=== PATIENT | female | born 1970 | race Caucasian/White ===

== ENCOUNTER 2017-05-27 09:27 | Emergency (ER) | payer BC ==
[2017-05-27] MEDS ORDERED: DIPH,PERTUS(ACELL)TETVAC-LF 0.5 ML VIAL IM ONE (09:53)
--- NOTE | 2017-05-27 09:58 | ED ---
Wound/Laceration HPI - General Chief Complaint: Wound/Laceration Stated Complaint: laceration Time Seen by Provider: 05/27/17 09:46 Source: patient, RN notes reviewed Mode of arrival: ambulatory Limitations: no limitations - History of Present Illness Initial Comments: Patient is a 47-year-old female presents to the emergency room for finger laceration. 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 Patient states she went to urgent care where they place stitches in her finger. Patient states her finger still continued to bleed so they took the stitches out and sent her here. Patient denies taking blood thinners. Patient states last tetanus vaccine was in 2009. Patient denies any current pain since they numbed her finger at urgent care. Patient denies any other injuries during incident. - Related Data Home Medications Medication Instructions Recorded Confirmed Fexofenadine HCl [Sara Allergy] 180 mg PO DAILY PRN 05/27/17 05/27/17 diphenhydrAMINE HCL [Benadryl] 50 mg PO HS PRN 05/27/17 05/27/17 Allergies Allergy/AdvReac Type Severity Reaction Status Date / Time cortisone Allergy Swelling Verified 05/27/17 09:53 Penicillins Allergy Unknown Verified 05/27/17 09:53 Childhood shellfish derived [Shrimp] Allergy Unknown Verified 05/27/17 09:53 Review of Systems ROS Statement: Those systems with pertinent positive or pertinent negative responses have been documented in the HPI. ROS Other: All systems not noted in ROS Statement are negative. Past Medical History Additional Past Medical History / Comment(s): ectopic pregnance, History of Any Multi-Drug Resistant Organisms: None Reported Past Surgical History: Orthopedic Surgery Additional Past Surgical History / Comment(s): right knee Past Psychological History: No Psychological Hx Reported Smoking Status: Current every day smoker Past Alcohol Use History: None Reported Past Drug Use History: None Reported General Exam - General Exam Comments Initial Comments: Sitting in exam room, no acute distress. Limitations: no limitations General appearance: alert, in no apparent distress Head exam: Present: atraumatic, normocephalic, normal inspection Eye exam: Present: normal appearance ENT exam: Present: normal exam Neck exam: Present: normal inspection Respiratory exam: Absent: respiratory distress Right Hand Wrist exam: Present: full ROM, laceration (1cm laceration over tip of the distal phalanx of the third finger. No active bleeding.) Vascular: Present: normal capillary refill (Capillary refill less than 2 seconds ), radial pulse (2+), ulnar pulse (2+) Back exam: Present: normal inspection Neurological exam: Present: alert, oriented X3, CN II-XII intact, normal gait Psychiatric exam: Present: normal affect, normal mood Skin exam: Present: warm, dry. Absent: rash Course Vital Signs 05/27/17 05/27/17 09:29 10:52 Temperature 97.1 F L 97 F L Pulse Rate 75 65 Respiratory 17 18 Rate Blood Pressure 120/80 132/62 O2 Sat by Pulse 97 96 Oximetry Procedures - Laceration Laceration #1 Consent Obtained: verbal consent Indication: laceration Site: other (right third finger) Size (cm): 1 Description: linear Depth: simple, single layer Type of Sutures: nylon Size of Sutures: 6-0 Number of Sutures: 2 Technique: simple, interrupted Patient Tolerated Procedure: well, no complications Medical Decision Making - Medical Decision Making Patient is a 47-year-old female presents to the emergency room for evaluation of left third finger laceration. Patient was sent here from the [facility] due to her finger continuing to bleed. No active bleeding on examination. Patient's finger was already anesthetized before arrival from [facility]. 2, 6. 0 nylon sutures were placed. Patient updated on her tetanus vaccine. Return parameters discussed. Disposition Clinical Impression: Finger laceration Disposition: HOME SELF-CARE Condition: Good Instructions: Care For Your Stitches (ED), Finger Laceration (ED) Additional Instructions: Do not soak suture area in water. Clean suture area with a damp cloth. Please return in 7-10 days for suture removal. Tylenol or Motrin as needed for pain. If any new symptom arises or symptoms worsen, return to ER as soon as possible. Referrals: Yung Servin MD [Primary Care Provider] - 1-2 days Time of Disposition: 10:44
[2017-05-27 10:53] VITALS: BP 132/62; PULSE 65; RESP 18; TEMP 97
== END 2017-05-27 10:53 | disposition home or self-care (01) ==
LOC: EC 09:27
DX: S61.212D Laceration without foreign body of right middle finger without damage to nail, subsequent encounter (principal); F17.200 Nicotine dependence, unspecified, uncomplicated; Z88.0 Allergy status to penicillin; Z88.8 Allergy status to other drugs, medicaments and biological substances; Z91.013 Allergy to seafood; Z23 Encounter for immunization; W26.0XXD Contact with knife, subsequent encounter; Y92.833 Campsite as the place of occurrence of the external cause; Y93.G1 Activity, food preparation and clean up
CPT/HCPCS: 12001; 90471; 90715; 99282

== ENCOUNTER 2019-05-01 23:32 | Emergency (ER) | payer BC ==
[2019-05-02 00:19] VITALS: RESP 18; TEMP 98.1
[2019-05-02] MEDS ORDERED: SODIUM CHLORIDE 0.9% 500 ML 500 ML IV STA (00:47)
[2019-05-02 01:19] LABS: Basophils % (A) 0 %; Eosinophils # (A) 0.5 k/uL (0-0.7); Eosinophils % (A) 4 %; HCT 44.3 % (34.0-46.0); HGB 14.5 gm/dL (11.4-16.0); Lymphocytes # (A) 2.9 k/uL (1.0-4.8); Lymphocytes % (A) 24 %; MCH 29.6 pg (25.0-35.0); MCHC 32.6 g/dL (31.0-37.0); MCV 90.7 fL (80.0-100.0); Mean Platelet Volume 7.4; Monocytes # (A) 0.8 k/uL (0-1.0); Monocytes % (A) 7 %; Neutrophils # (A) 7.6 k/uL (1.3-7.7); Neutrophils % (A) 63 %; Platelet Count 310 k/uL (150-450); RBC 4.89 m/uL (3.80-5.40); RDW 14.1 % (11.5-15.5)
[2019-05-02 01:29] LABS: ALT 15 U/L (9-52); AST 13 U/L (14-36); African American GFR (CKD) >90 (>60 ml/min/1.73 sqM); Albumin 4.1 g/dL (3.5-5.0); Alkaline Phosphatase 52 U/L (38-126); Anion Gap 8 mmol/L; Blood Urea Nitrogen 12 mg/dL (7-17); Calcium 9.9 mg/dL (8.4-10.2); Carbon Dioxide 26 mmol/L (22-30); Chloride 105 mmol/L (98-107); Glucose 103 mg/dL (74-99); Potassium 3.9 mmol/L (3.5-5.1); Sodium 139 mmol/L (137-145); Total Bilirubin 0.5 mg/dL (0.2-1.3); Total Protein 6.7 g/dL (6.3-8.2)
--- NOTE | 2019-05-02 02:05 | ED ---
General Adult HPI - General Chief complaint: ENT Stated complaint: Lump in Throat Time Seen by Provider: 05/02/19 00:11 Source: patient, RN notes reviewed, old records reviewed Mode of arrival: ambulatory Limitations: physical limitation - History of Present Illness Initial comments: 49-year-old female patient with no pertinent past medical history presents to ED with sensation of foreign body in throat. Patient states that this began today approximately 8 PM. Patient states that she is not having difficulty breathing. However she feels as if she has a lump in her throat. Patient denies a sensation of food trapped in throat after eating. Patient denies any other complaints at this time. Denies any chest pain shortness breath abdominal pain nausea vomiting or diarrhea. Patient states that there is no chance that she could be . Systemic: Pt denies fatigue, fever/chills, rash. Pt denies weakness, night sweats, weight loss. Neuro: Pt denies headache, visual disturbances, syncope or pre-syncope. HEENT: Pt denies ocular discharge or irritation, otalgia, rhinorrhea, pharyngitis or notable lymphadenopathy. Cardiopulmonary: Pt denies chest pain, SOB, heart palpitations, dyspnea on exertion. Abdominal/GI: Pt denies abdominal pain, n/v/d. : Pt denies dysuria, burning w/ urination, frequency/urgency. Denies new onset urinary or bowel incontinence. MSK: Pt denies myalgia, loss of strength or function in extremities. Neuro: Pt denies new onset weakness, paresthesias. - Related Data Home Medications Medication Instructions Recorded Confirmed Fexofenadine HCl [Sara Allergy] 180 mg PO DAILY PRN 05/27/17 05/02/19 diphenhydrAMINE HCL [Benadryl] 50 mg PO HS PRN 05/27/17 05/02/19 Allergies Allergy/AdvReac Type Severity Reaction Status Date / Time cortisone Allergy Swelling Verified 05/02/19 00:05 Penicillins Allergy Unknown Verified 05/02/19 00:05 Childhood shellfish derived [Shrimp] Allergy Unknown Verified 05/02/19 00:05 Review of Systems ROS Statement: Those systems with pertinent positive or pertinent negative responses have been documented in the HPI. ROS Other: All systems not noted in ROS Statement are negative. Past Medical History Additional Past Medical History / Comment(s): ectopic History of Any Multi-Drug Resistant Organisms: None Reported Past Surgical History: Orthopedic Surgery Additional Past Surgical History / Comment(s): right knee, ECTOPIC Past Psychological History: No Psychological Hx Reported Smoking Status: Former smoker Past Alcohol Use History: None Reported Past Drug Use History: None Reported General Exam - General Exam Comments Initial Comments: Constitutional: NAD, AOX3, Pt has pleasant affect. HEENT: NC/AT, trachea midline, neck supple, no lymphadenopathy. Posterior pharynx non erythematous, without exudates. External ears appear normal, without discharge. Mucous membranes moist. Eyes PERRLA, EOM intact. There is no scleral icterus. No pallor noted. Thyroid appears mildly enlarged on left lobe. Cardiopulmonary: RRR, no murmurs, rubs or gallops, no JVD noted. Lungs CTAB in anterior and posterior egan. No peripheral edema. Abdominal exam: Abdomen soft and non-distended. Abdomen non-tender to palpation in all 4 quadrants. Bowel sounds active in LLQ. No hepatosplenomegaly. No ecchymosis Neuro: CN II-XII grossly intact. No nuchal rigidity. No raccon eyes, no resendiz sign, no hemotympanum. No cervical spinal tenderness. MSK: No posterior calf tenderness bilaterally, homans sign negative bilaterally. Posterior tibialis and radial pulse +2 bilaterally. Sensation intact in upper and lower extremities. Full active ROM in upper and lower extremities, 5/5 stregnth. Limitations: physical limitation Course Vital Signs 05/02/19 00:00 Temperature 98.1 F Pulse Rate 69 Respiratory 18 Rate Blood Pressure 148/86 O2 Sat by Pulse 98 Oximetry Medical Decision Making - Medical Decision Making 49-year-old female patient with no pertinent past medical history presents to ED with sensation of foreign body in throat. Patient states that this began today approximately 8 PM. Patient states that she is not having difficulty breathing. However she feels as if she has a lump in her throat. Patient denies a sensation of food trapped in throat after eating. Patient denies any other complaints at this time. Denies any chest pain shortness breath abdominal pain nausea vomiting or diarrhea. Patient states that there is no chance that she could be . Patient vital signs stable, afebrile. Physical exam displayed mildly enlarged L thyroid lobe. Laboratory investigations revealed mild lekocytosis 12.0. CMP nonimmpressive. CT soft tissue neck with contrast displayed 2 cm nodule in left thyroid lobe. Patient will be discharged with surgery follow-up. Patient also be given a prescription for outpatient ultrasound of the thyroid. Patient return here if condition worsens. Case discussed with Dr. Ann. - Lab Data Result diagrams: 05/02/19 01:07 05/02/19 01:07 Lab Results 05/02/19 05/02/19 05/02/19 Range/Units 01:07 01:07 01:07 WBC 12.0 H (3.8-10.6) k/uL RBC 4.89 (3.80-5.40) m/uL Hgb 14.5 (11.4-16.0) gm/dL Hct 44.3 (34.0-46.0) % MCV 90.7 (80.0-100.0) fL MCH 29.6 (25.0-35.0) pg MCHC 32.6 (31.0-37.0) g/dL RDW 14.1 (11.5-15.5) % Plt Count 310 (150-450) k/uL Neutrophils % 63 % Lymphocytes % 24 % Monocytes % 7 % Eosinophils % 4 % Basophils % 0 % Neutrophils # 7.6 (1.3-7.7) k/uL Lymphocytes # 2.9 (1.0-4.8) k/uL Monocytes # 0.8 (0-1.0) k/uL Eosinophils # 0.5 (0-0.7) k/uL Basophils # 0.0 (0-0.2) k/uL Sodium 139 (137-145) mmol/L Potassium 3.9 (3.5-5.1) mmol/L Chloride 105 (98-107) mmol/L Carbon Dioxide 26 (22-30) mmol/L Anion Gap 8 mmol/L BUN 12 (7-17) mg/dL Creatinine 0.63 (0.52-1.04) mg/dL Est GFR (CKD-EPI)AfAm >90 (>60 ml/min/1.73 sqM) Est GFR (CKD-EPI)NonAf >90 (>60 ml/min/1.73 sqM) Glucose 103 H (74-99) mg/dL Plasma Lactic Acid Marco A 1.0 (0.7-2.0) mmol/L Calcium 9.9 (8.4-10.2) mg/dL Total Bilirubin 0.5 (0.2-1.3) mg/dL AST 13 L (14-36) U/L ALT 15 (9-52) U/L Alkaline Phosphatase 52 (38-126) U/L Total Protein 6.7 (6.3-8.2) g/dL Albumin 4.1 (3.5-5.0) g/dL Disposition Clinical Impression: Thyroid nodule Disposition: HOME SELF-CARE Condition: Stable Instructions (If sedation given, give patient instructions): Thyroid Nodules (ED) Additional Instructions: Patient to adhere to previously discussed treatment plan and will take medication(s) as directed. Patient to follow up with PCP in 1-2 days. Patient to return to ED if symptoms do not improve. Follow-up with surgery consult and PCP tomorrow. Return to ER if condition worsens. Is patient prescribed a controlled substance at d/c from ED?: No Referrals: Yung Servin MD [Primary Care Provider] - 1-2 days Rios Kumar MD [Medical Doctor] - 1-2 days
--- NOTE | 2019-05-02 02:21 | CT ---
EXAM: CT Neck With Intravenous Contrast CLINICAL HISTORY: ITS.REASON CT Reason: Pain TECHNIQUE: Axial computed tomography images of the neck with intravenous contrast. This CT exam was performed using one or more of the following dose reduction techniques: automated exposure control, adjustment of the mA and/or kV according to patient size, and/or use of iterative reconstruction technique. COMPARISON: No relevant prior studies available. FINDINGS: Oropharynx: Unremarkable. No significant tonsillar enlargement. No peritonsillar abscess. Hypopharynx: Unremarkable. Larynx: Unremarkable. Normal epiglottis. Trachea: Unremarkable. Retropharyngeal space: Unremarkable. Submandibular/parotid glands: Unremarkable. Glands are normal in size. Thyroid: . 2 cm nodule in the left thyroid lobe. Bones/joints: No acute fracture. Soft tissues: Unremarkable. Vasculature: No suspicious findings. Lymph nodes: Unremarkable. No lymphadenopathy. Lung apices: Unremarkable as visualized. IMPRESSION: . 2 cm nodule in the left thyroid lobe.
[2019-05-02 03:18] VITALS: BP 132/78; PULSE 59
== END 2019-05-02 03:16 | disposition home or self-care (01) ==
LOC: EC 23:32
DX: E04.1 Nontoxic single thyroid nodule (principal); Z88.0 Allergy status to penicillin; Z91.013 Allergy to seafood; Z88.8 Allergy status to other drugs, medicaments and biological substances; Z87.891 Personal history of nicotine dependence
CPT/HCPCS: 36415; 80053; 83605; 85025; 70491; 99284; 96360; Q9967

== ENCOUNTER → 2019-05-07 | Outpatient (CLI) | payer BC ==
--- NOTE | 2019-05-07 12:23 | US ---
EXAMINATION TYPE: US thyroid st tissue head/neck DATE OF EXAM: 05/07/2019 COMPARISON: NONE CLINICAL HISTORY: E04.1 Thyroid Nodule. GLAND SIZE: Right Lobe: 5.3 x 1.5 x 2.3 cm Overall Parenchyma: homogenous Left Lobe: 5.2 x 2.3 x 2.4 cm Overall Parenchyma: homogeneous Isthmus Thickness: 0.6cm NODULES RIGHT: # of nodules measured on right: 3 1. 0.8 X 0.8 x 0.7 cm hypoechoic mixed nodule at the lower pole with well-defined margins; . This nodule is taller than wide and shows no intranodular vascularity. Prior size:no prior 2. 0.7 X 0.7 x 0.9 cm isoechoic solid nodule at the lower pole with poorly defined margins; . This nodule is wider than tall and shows no intranodular vascularity. Prior size: no prior 3. 0.6 X 0.5 x 0.6 cm hypoechoic solid nodule at the mid pole with well-defined margins; . This nod ule is wider than tall and shows no intranodular vascularity. Prior size: no prior LEFT: # of nodules measured on left: 1 1. 2.3 X 2.0 x 2.5 cm hypoechoic mixed nodule at the lower pole with well-defined margins; . This nodule is wider than tall and shows no intranodular vascularity. Prior size: no prior ISTHMUS: # of nodules measured in the isthmus: 0 Bilateral neck scanned, no evidence of lymphadenopathy. IMPRESSION: Mixed solid and cystic left thyroid nodule measuring up to 2.3 cm corresponding to a TIRADS 3 nodule- Mildly Suspicious: FNA if ? 2.5 cm; Follow if ? 1.5 cm. Short-term follow-up in 6-12 months is there fore recommended. Subcentimeter right thyroid nodules are incidentally seen. Overall the thyroid glan d is enlarged and multinodular compatible with a multinodular goiter.
== END | disposition home or self-care (01) ==
LOC: RADUSWWP 11:36
PROVIDERS: ATTEND Emergency Medicine
DX: E04.2 Nontoxic multinodular goiter (principal)
CPT/HCPCS: 76536

== ENCOUNTER 2019-05-23 12:09 | Day surgery (SDC) | payer BC ==
[2019-05-23 12:20] VITALS: RESP 16; TEMP 97.5
[2019-05-23 13:34] VITALS: BP 129/75; PULSE 61
--- NOTE | 2019-05-23 13:35 | US ---
ULTRASOUND GUIDED FNA THYROID BIOPSY: CLINICAL HISTORY: Left thyroid nodule FINDINGS: The procedure was explained to the patient. The risks, complications, benefits and alternatives were discussed and any questions were answered. Informed consent was obtained. Patient was placed supin e on the ultrasound table and prepped and draped in the usual sterile fashion. Utilizing a 25 gauge needle, five passes were made into the requested left thyroid nodule. Patient was stable throughout the procedure. Pathology is pending. All elements of maximal barrier technique were utilized. IMPRESSION: 1. Successful ultrasound guided FNA thyroid biopsy.
== END 2019-05-23 13:38 | disposition home or self-care (01) ==
LOC: RADPROMAIN 12:09
PROVIDERS: ATTEND Surgery
DX: E04.1 Nontoxic single thyroid nodule (principal)
CPT/HCPCS: 10005; 88173; 88305

== ENCOUNTER → 2019-11-29 | Outpatient (CLI) | payer BC ==
--- NOTE | 2019-11-29 10:05 | US ---
EXAMINATION TYPE: US thyroid st tissue head/neck DATE OF EXAM: 11/29/2019 COMPARISON: US 05/23/2019 and 05/07/2019 CLINICAL HISTORY: E04.1 thyroid nodule. F/U nodules GLAND SIZE: Right Lobe: 5.2 x 1.7 x 2.2 cm Overall Parenchyma: heterogenous Left Lobe: 6.3 x 1.9 x 3.0 cm Overall Parenchyma: heterogeneous Isthmus Thickness: 0.6 cm NODULES RIGHT: # of nodules measured on right: 3 1. 0.9 X 0.8 x 0.7 cm hypoechoic mixed nodule at the mid pole with well-defined margins; This nodu le is wider than tall and shows intranodular vascularity. Prior size: 0.8 x 0.8 x 0.7 cm 2. 0.7 X 0.8 x 0.9 cm hypoechoic solid nodule at the lower pole with well-defined margins; This nod ule is wider than tall and shows intranodular vascularity. Prior size: 0.7 x 0.7 x 0.9 cm 3. 0.8 X 0.5 x 0.7 cm isoechoic solid nodule at the lower pole with well-defined margins; This nod ule is wider than tall and shows intranodular vascularity. Prior size: 0.6 x 0.5 x 0.6 cm LEFT: # of nodules measured on left: 2 1. 2.4 X 2.2 x 2.4 cm hypoechoic mixed nodule at the lower pole with well-defined margins; This nod ule is wider than tall and shows intranodular vascularity. Prior fine-needle aspiration on 05/23/2019 Prior size: 2.3 x 2.0 x 2.5 cm 2. 0.9 X 0.7 x 0.9 cm isoechoic solid nodule at the mid pole with well-defined margins;. This nodul e is wider than tall and shows intranodular vascularity. Prior size: Not visualized on prior Bilateral neck scanned, no evidence of lymphadenopathy. Stable nodules bilaterally with new nodule le ft lobe. IMPRESSION: Similar size of the bilateral subcentimeter thyroid nodules and the dominant 2.4 cm left thyroid nodule, previously biopsied. Overall multinodular goiter.
== END | disposition home or self-care (01) ==
LOC: RADUSWWP 09:26
PROVIDERS: ATTEND Surgery
DX: E04.2 Nontoxic multinodular goiter (principal)
CPT/HCPCS: 76536

== ENCOUNTER → 2020-06-03 | Outpatient (CLI) | payer BC ==
--- NOTE | 2020-06-03 12:03 | US ---
EXAMINATION TYPE: US thyroid st tissue head/neck DATE OF EXAM: 06/03/2020 COMPARISON: 11/29/2019 CLINICAL HISTORY: 50-year-old female E04.1 THYROID NODULE. TECHNIQUE: Multiple sonographic images of the thyroid gland are obtained. FINDINGS: GLAND SIZE: Right Lobe: 5.0 x 1.4 x 2.2 cm Overall Parenchyma: homogenous Left Lobe: 5.6 x 2.4 x 2.4 cm Overall Parenchyma: homogeneous Isthmus Thickness: 0.7 cm NODULES RIGHT: # of nodules measured on right: 3 1. 1.0 X 0.9 x 0.9 cm hypoechoic mixed nodule at the mid pole with well-defined margins; . This no dule is wider than tall and shows intranodular vascularity. Prior size: 0.9 x 0.8 x 0.7 cm 2. 1.0 X 0.9 x 0.8 cm hypoechoic mixed nodule at the lower pole with well-defined margins; . This n odule is wider than tall and shows intranodular vascularity. Prior size: 0.7 x 0.8 x 0.9 cm 3. 0.7 X 0.5 x 0.7 cm isoechoic solid nodule at the lower pole with well-defined margins; . This no dule is wider than tall and shows intranodular vascularity. Prior size: 0.6 x 0.5 x 0.6 cm LEFT: # of nodules measured on left: 2 1. 2.3 X 2.1 x 2.1 cm hypoechoic mixed nodule at the lower pole with well-defined margins; . This nodule is wider than tall and shows intranodular vascularity. Prior size: 2.4 x 2.2 x 2.4 cm 2. 1.1 X 0.8 x 0.8 cm isoechoic solid nodule at the mid pole with well-defined margins; . This nodu le is wider than tall and shows intranodular vascularity. Prior size: 0.9 x 0.7 x 0.9 cm ISTHMUS: # of nodules measured in the isthmus: 0 Bilateral neck scanned, no evidence of lymphadenopathy. [employer] notes: Nodules as described. IMPRESSION: 1. Findings likely represent multinodular goiter. 2. Two nodules on the right show slight interval increase in size by 1 to 2 mm now measuring up to 1 cm. The dominant 2.3 cm mixed nodule on the left has not significantly changed. Continued follow-up c an be considered.
== END | disposition home or self-care (01) ==
LOC: RADUSWWP 08:46
PROVIDERS: ATTEND Surgery
DX: E04.2 Nontoxic multinodular goiter (principal)
CPT/HCPCS: 76536

== ENCOUNTER → 2020-11-10 | Outpatient (CLI) | payer BC ==
[2020-11-11 11:50] LABS: IgG Subclass 4 26.3 mg/dL (3.0-175.0)
[2020-11-11 12:08] LABS: IgG Subclass 3 27.6 mg/dL (11.0-85.0)
== END | disposition home or self-care (01) ==
LOC: LABWHC1 12:22
PROVIDERS: ATTEND Otolaryngology
DX: D84.9 Immunodeficiency, unspecified (principal)
CPT/HCPCS: 36415; 82784; 82785; 82787; 86317

== ENCOUNTER → 2020-12-08 | Outpatient (CLI) | payer BC | END | disposition home or self-care (01) | LOC: LABWHC1 14:16 | PROVIDERS: ATTEND Otolaryngology | DX: J32.4 Chronic pansinusitis (principal) | CPT/HCPCS: U0003; C9803; U0005 ==

== ENCOUNTER → 2021-08-11 | Outpatient (CLI) | payer BC ==
--- NOTE | 2021-08-12 08:57 | XR ---
Right foot HISTORY: Plantar fasciitis, pain 3 views the right foot Bone mineralization, joint spaces and alignment are maintained. Mild degenerative change present at t he metatarsophalangeal joint of the first digit, mild spurring at the intertarsal joints. No fracture or dislocation. There is a minute plantar calcaneus spur noted. IMPRESSION: Mild degenerative changes, small plantar calcaneal spur
== END | disposition home or self-care (01) ==
LOC: RADXRWHC 16:28
PROVIDERS: ATTEND Internal Medicine
DX: M19.071 Primary osteoarthritis, right ankle and foot (principal); M77.31 Calcaneal spur, right foot

== ENCOUNTER → 2021-08-12 | Outpatient (CLI) | payer BC ==
[2021-08-12 16:22] LABS: Basophils # (A) 0.05 X 10*3/uL (0.00-0.10); Basophils % (A) 0.5 %; Eosinophils # (A) 0.41 X 10*3/uL (0.04-0.35); Eosinophils % (A) 4.3 %; HCT 45.1 % (37.2-46.3); HGB 14.4 g/dL (12.0-15.0); Lymphocytes # (A) 1.81 X 10*3/uL (0.90-5.00); Lymphocytes % (A) 19.2 %; MCH 29.1 pg (27.0-32.0); MCHC 31.9 g/dL (32.0-37.0); MCV 91.1 fL (80.0-97.0); Mean Platelet Volume 10.4 fL (9.5-12.2); Monocytes # (A) 0.88 X 10*3/uL (0.20-1.00); Monocytes % (A) 9.3 %; Neutrophils # (A) 6.27 X 10*3/uL (1.80-7.70); Neutrophils % (A) 66.4 %; Platelet Count 301 X 10*3/uL (140-440); RBC 4.95 X 10*6/uL (4.10-5.20); RDW 13.2 % (11.5-14.5); WBC 9.45 X 10*3/uL (4.50-10.00)
[2021-08-13 15:37] LABS: LDL Cholesterol,Calculated 54.4 mg/dL (0.0-131.0)
== END | disposition home or self-care (01) ==
LOC: LABWHC1 09:34
PROVIDERS: ATTEND Internal Medicine
DX: Z00.00 Encounter for general adult medical examination without abnormal findings (principal)
CPT/HCPCS: 36415; 80053; 80061; 84443; 85025

== ENCOUNTER → 2021-09-18 | Outpatient (CLI) | payer BC ==
--- NOTE | 2021-09-18 15:02 | US ---
EXAMINATION TYPE: US thyroid st tissue head/neck DATE OF EXAM: 09/18/2021 COMPARISON: 06/11/2021 CLINICAL HISTORY: E04.1 thyroid nodule. GLAND SIZE: Right Lobe: 4.8x2.3x1.6cm Overall Parenchyma: homogenous Left Lobe: 5.5x2.4x2.6cm Overall Parenchyma: homogeneous Isthmus Thickness: 0.5m NODULES RIGHT: # of nodules measured on right: 3 1. 1.4x0.8x 0.8cm, mid mid, spongiform, isoechoic nodule, which is wider than tall, with smooth lauri ins, without echogenic foci. Prior size: 1.0 x 1.0 x 0.9 cm 2. 1.0 x 1.1x 1.0cm, mid mid, spongiform, isoechoic nodule, which is wider than tall, with margins, without echogenic foci. Prior size: 1.0 x 0.8 x 0.9 cm 3. 0.9x 0.8 x 0.5 cm, lower mid, spongiform, isoechoic nodule, which is wider than tall, with gino h margins, without echogenic foci. Prior size: 0.7 x 0.7 x 0.5 cm LEFT: # of nodules measured on left: 3 1. 1.0 X 0.9 x 0.9 cm, upper lateral, solid or almost completely solid, isoechoic nodule, which is wider than tall, with smooth margins, without echogenic foci. Prior size: 1.1 x 0.8 x 0.8 cm 2. 0.7 X 0.7 x 0.7 cm, mid mid, spongiform, isoechoic nodule, which is wider than tall, with gino h margins, without echogenic foci. Prior size: not previously measured 3. 2.6 X 2.4 x 2.1 cm, lower mid, mixed cystic and solid, anechoic nodule, which is wider than tall , with smooth margins, without echogenic foci. Prior size: 2.3 x 2.1 x 2.1 cm ISTHMUS: # of nodules measured in the isthmus: 0 Bilateral neck scanned, no evidence of lymphadenopathy. Left Mid thyroid calc seen 0.4cm IMPRESSION: 1. Benign findings thyroid ultrasound 2017 ACR TI-RADS LEVEL: TR-RADS 1 - BENIGN: No FNA *Highest TI-RADS level nodule reported
== END | disposition home or self-care (01) ==
LOC: RADUSWWP 07:39
PROVIDERS: ATTEND Surgery
DX: E04.2 Nontoxic multinodular goiter (principal)
CPT/HCPCS: 76536

== ENCOUNTER → 2021-10-05 | Outpatient (CLI) | payer BC ==
--- NOTE | 2021-10-06 11:02 | MM ---
Reason for exam: screening (asymptomatic). Physical Findings: A clinical breast exam by your physician is recommended on an annual basis and results should be correlated with mammographic findings. MG Screening Mammo w CAD Bilateral CC and MLO view(s) were taken. No prior studies available for comparison. The breast tissue is heterogeneously dense. This may lower the sensitivity of mammography. Finding #1: There is a 7 mm obscured round mass located 8 cm from the nipple in the upper outer quadrant, posterior position of the right breast, 11mm mass upper outer quadrant middle depth. Finding #2: There are typically benign round calcifications in the left breast. Focal asymmetry 15mm left MLO anterior middle central position, 4-5cm from the nipple. ASSESSMENT: Incomplete: need additional imaging evaluation, BI-RAD 0 RECOMMENDATION: Special view mammogram of both breasts. Ultrasound of the right breast. [facility] will attempt to contact patient to return for supplemental views and ultrasound.
== END | disposition home or self-care (01) ==
LOC: RADMAMWWP 11:42
PROVIDERS: ATTEND Internal Medicine
DX: Z12.31 Encounter for screening mammogram for malignant neoplasm of breast (principal); N63.11 Unspecified lump in the right breast, upper outer quadrant; R92.1 Mammographic calcification found on diagnostic imaging of breast
CPT/HCPCS: 77067

== ENCOUNTER → 2021-10-23 | Outpatient (CLI) | payer BC ==
--- NOTE | 2021-10-23 12:13 | MM ---
Reason for exam: additional evaluation requested from abnormal screening. Last mammogram was performed 1 month ago. Physical Findings: Nurse did not find any significant physical abnormalities on exam. MG Work Up Mamm w CAD BILAT Bilateral spot compression CC, spot compression MLO, and LM view(s) were taken. Prior study comparison: October 05, 2021, bilateral MG screening mammo w CAD. The breast tissue is heterogeneously dense. This may lower the sensitivity of mammography. Finding: There is a 8 mm equal density (isodense), indistinct irregular mass located 6 cm from the nipple in the upper outer quadrant, middle position of the right breast. These results were verbally communicated with the patient and result sheet given to the patient on 10/23/21. ASSESSMENT: Incomplete: need additional imaging evaluation, BI-RAD 0 RECOMMENDATION: Ultrasound of the right breast.
--- NOTE | 2021-10-23 12:16 | USB ---
Reason for exam: additional evaluation requested from abnormal screening. US Breast Workup Limited RT Right limited breast ultrasound including focal area of concern, retroareolar and axilla demonstrates three oval, cystic lesions at 10 o'clock measuring 0.3 x 0.4 x 0.3cm, 1.1 x 1.1 x 0.8cm and 0.7 x 0.6 x 0.6cm. These results were verbally communicated with the patient and result sheet given to the patient on 10/23/21. ASSESSMENT: Benign, BI-RAD 2 RECOMMENDATION: Follow-up diagnostic mammogram of both breasts in 6 months.
== END | disposition home or self-care (01) ==
LOC: RADMAMWWP 10:20
PROVIDERS: ATTEND Internal Medicine
DX: N60.01 Solitary cyst of right breast (principal); N63.11 Unspecified lump in the right breast, upper outer quadrant
CPT/HCPCS: 77066

== ENCOUNTER → 2022-09-14 | Outpatient (CLI) | payer BC ==
--- NOTE | 2022-09-14 15:48 | MM ---
Reason for Exam: Follow-up at short interval from prior study. Last screening mammogram was performed 11 month(s) ago. Patient History: Menarche at age 15. First Full-Term at age 23. Hormonal Contraceptives for 14 years from age 18 until age 32. Risk Values: Ignacia 5 year model risk: 0.9%. NCI Lifetime model risk: 8.0%. Tissue Density: The breast tissue is heterogeneously dense. This may lower the sensitivity of mammography. Findings: Analyzed By CAD. Maybe some persistence of nodularity of the right breast. Increasing size or new nodules are not evident. Left breast appears stable. Some scattered benign-appearing right breast calcifications are present. Overall Assessment: Probably benign, BI-RAD 3 Management: Diagnostic Mammogram of the right breast in 6 months. A clinical breast exam by your physician is recommended on an annual basis and results should be correlated with mammographic findings. This exam should not preclude additional follow-up of suspicious palpable abnormalities. Results were given to the patient verbally at the time of exam. Electronically signed and approved by: Alberto De Leon D.O. Radiologis
== END | disposition home or self-care (01) ==
LOC: RADMAMWWP 14:09
PROVIDERS: ATTEND Internal Medicine
DX: R92.8 Other abnormal and inconclusive findings on diagnostic imaging of breast (principal)
CPT/HCPCS: 77062; 77066

== ENCOUNTER → 2022-10-11 | Outpatient (CLI) | payer BC ==
--- NOTE | 2022-10-12 05:20 | MR ---
EXAMINATION TYPE: MR elbow LT wo con DATE OF EXAM: 10/11/2022 COMPARISON: None HISTORY: Pain at tip of left elbow Multiplanar multiecho imaging of the left elbow performed without contrast. Distal humerus is intact. Proximal radius is intact. The brachialis tendon and biceps tendon appear i ntact. No pathologic fluid collection seen anteriorly. No sign of elbow joint effusion. The triceps t endon is intact. There is increased signal within the olecranon process of the ulna on the proton density images and c onsistent with a bone bruise and edema. The collateral ligaments appear intact. There is subcutaneous increased fluid signal on the dorsum of the proximal ulna. No fracture line see n. IMPRESSION: There is bone edema involving the olecranon process and consistent with a bone bruise. Subcutaneous e joyce over the dorsum of the elbow. No evidence of ligament or tendon tear appeared
== END | disposition home or self-care (01) ==
LOC: RADMRIMAIN 12:57
PROVIDERS: ATTEND Internal Medicine
DX: M25.522 Pain in left elbow (principal); R60.0 Localized edema

== ENCOUNTER 2022-10-25 10:01 | Day surgery (SDC) | payer BC ==
[2022-10-20 09:09] VITALS: BMI 31.8
[~2022-10-25 10:01] MED LIST: ACETAMINOPHEN TAB 500 MG TAB PO PRN; HEPARIN SODIUM,PORCINE/PF 5,000 UNIT/0.5 ML SYRINGE SQ PRN; MIDAZOLAM 2 MG/2 ML VIAL IV PRN; ONDANSETRON 4 MG/2 ML VIAL IVP ONE; Pre Op ABX Message 1 EACH MISC MISCELLANE ONE; SCOPOLAMINE 1 MG/72 HR PATCH TRANSDERM ONE
[2022-10-25 11:06] LABS: Glucose,Whole Blood 101 mg/dL (70-110)
[2022-10-25] MEDS: LACTATED RINGERS 1,000 ML IV SCH (11:06)
[2022-10-25] MEDS ORDERED: ONDANSETRON 4 MG/2 ML VIAL IVP ONE (11:14)
--- NOTE | 2022-10-25 11:28 | P.GSHP ---
History of Present Illness H&P Date: 10/25/22 Chief Complaint: Left thyroid nodule This a 52-year-old female who presents today for left thyroidectomy. Patient has complaints of a tender mass in her left neck. She also has complaints of some compressive symptoms with swallowing. Patient has a known 2.5 cm follicular nodule. She resents today for left thyroidectomy. Past Medical History Past Medical History: Asthma, Thyroid Disorder Additional Past Medical History / Comment(s): Seasonal allergies. History of Any Multi-Drug Resistant Organisms: None Reported Past Surgical History: Orthopedic Surgery Additional Past Surgical History / Comment(s): Right knee surgery X2, surgery for ectopic . Past Anesthesia/Blood Transfusion Reactions: No Reported Reaction Past Psychological History: No Psychological Hx Reported Smoking Status: Former smoker Past Alcohol Use History: None Reported Additional Past Alcohol Use History / Comment(s): Quit smoking 7 yrs ago, smoked off and on for 15 yrs. Past Drug Use History: None Reported - Past Family History Mother Family Medical History: No Reported History Medications and Allergies Home Medications Medication Instructions Recorded Confirmed Type Albuterol Inhaler [Ventolin Hfa 1 - 2 puff INHALATION Q6H PRN 10/20/22 10/25/22 History Inhaler] Fluticasone (Unknown Dose) 1 spray NASAL BID 10/20/22 10/25/22 History Meloxicam [Mobic] 15 mg PO DAILY 10/20/22 10/25/22 History Multivitamins, Thera [Multivitamin 1 tab PO DAILY 10/20/22 10/25/22 History (formulary)] Diclofenac Submicronized 50 mg PO DAILY 10/25/22 10/25/22 History [Diclofenac] Allergies Allergy/AdvReac Type Severity Reaction Status Date / Time cortisone Allergy Swelling Verified 10/25/22 10:32 Penicillins Allergy Unknown Verified 10/25/22 10:32 Childhood shellfish derived [Shrimp] Allergy Unknown Verified 10/25/22 10:32 Surgical - Exam Vital Signs Temp Pulse Resp BP Pulse Ox 97.6 F 67 14 133/79 96 10/25/22 10:43 10/25/22 10:43 10/25/22 10:43 10/25/22 10:43 10/25/22 10:43 - General well developed, well nourished, no distress - Eyes PERRL - ENT normal pinna - Neck Prominent left thyroid gland. - Respiratory normal expansion - Cardiovascular Rhythm: regular - Abdomen Abdomen: soft, non tender Assessment and Plan Assessment: Left thyroid nodule. We'll perform left directly. Patient aware the risk of recurrent laryngeal nerve injury, vocal hoarseness and injury to parathyroid gland
[2022-10-25] MEDS ORDERED: SUCCINYLCHOLINE CHLORIDE 200 MG/10 ML VIAL IV ONE (11:52)
[2022-10-25] MEDS ORDERED: NEOSTIGMINE 1 MG/ML 10 ML VIAL ONE (11:52)
[2022-10-25] MEDS ORDERED: GLYCOPYRROLATE 0.2 MG/ML 2 ML VIAL ONE (11:52)
[2022-10-25] MEDS ORDERED: PROPOFOL 10 MG/ML 20 ML VIAL IV ONE (11:52)
[2022-10-25] MEDS ORDERED: fentaNYL (PF) 50 MCG/ML 2 ML AMP ONE (11:52)
[2022-10-25] MEDS ORDERED: MIDAZOLAM 2 MG/2 ML VIAL ONE (11:52)
[2022-10-25] MEDS ORDERED: ROCURONIUM 10 MG/ML (5 ML VIAL) IV ONE (11:52)
[2022-10-25] MEDS ORDERED: LIDOCAINE 2% INJ 20 MG/ML (2 ML VIAL) ONE (11:52)
[2022-10-25] MEDS ORDERED: KETAMINE 10 MG/ML 20 ML VIAL ONE (11:52)
[2022-10-25] MEDS ORDERED: LACTATED RINGERS 1,000 ML IV ONE ×4 (12:59→16:03)
[2022-10-25] MEDS ORDERED: NALOXONE 0.4 MG/ML 1 ML VIAL IV PRN (13:12)
[2022-10-25] MEDS ORDERED: traMADol 50 MG TAB PO PRN (13:12)
[2022-10-25] MEDS ORDERED: HYDROmorphone 0.5 MG/0.5 ML SYRINGE IVP PRN (13:12)
[2022-10-25] MEDS ORDERED: ONDANSETRON 4 MG/2 ML VIAL IVP PRN (13:12)
[2022-10-25] MEDS ORDERED: HYDROmorphone 1 MG/ML 1 ML SYRINGE IVP PRN (13:12)
[2022-10-25] MEDS ORDERED: ACETAMINOPHEN TAB 325 MG TAB PO PRN (13:12)
[2022-10-25] MEDS ORDERED: HYDROcodone/APAP 5-325MG 1 EACH TAB PO PRN (13:12)
--- NOTE | 2022-10-25 13:12 | P.OP ---
Date of Procedure: 10/25/22 Preoperative Diagnosis: Thyroid nodule Postoperative Diagnosis: Left thyroid nodule Procedure(s) Performed: Patient's placed on the operative table in the supine position. She received general endotracheal tube anesthesia. Her neck was prepped and draped usual sterile fashion. Patient's placed in the beach chair position. The neck incision was marked. And then using a 15 blade incision was made. Using left cautery subcutaneous tissues and platysma were divided. The platysma flaps then elevated after the platysma was grasped Allis clamps. After the platysma flaps were created Gelpi placed a wound. The strap muscle divided midline. And then using a pair Tom retractors the left thyroid gland was exposed. There was a large 3 cm nodule located in the left lower left thyroid. Using meticulous dissection the thyroid gland was then rotated medially. The superior thyroid vessels were then dissected and then with a right angle clamp and a suture was passed around the superior thyroid vessels. 2-0 silk suture was uses. 2 sutures used to ligate the superior vessels then using the Harmonic scissors the hospital divided. Next the inferior thyroidal vessels were suture-ligated with 3-0 silk ties and then divided with the Harmonic scissors. The gland was rotated medially further and then several small vessels were divided between the Harmonic scissors and using 3-0 silk ties. Care was taken to identify and preserve the recurrent laryngeal nerve. The thyroid was then rotated medially trachea. Then using Harmonic scissors the thyroid gland was then dissected free of GERD. He has was then divided with Harmonic scissors. The specimens of pathology. The wound was hemostased. There was no bleeding seen. The strap muscle reapproximated using 3-0 Vicryl suture. The platysma was closed with 3-0 Vicryl suture. And then the skin was closed interrupted 3-0 Monocryl suture. Dermabond dressings applied. Patient top she will was sent to recovery room in stable condition. Anesthesia: GETA Surgeon: Dale Razo Estimated Blood Loss (ml): 10 Pathology: other (Left thyroid) Condition: stable Disposition: PACU Description of Procedure: Patient's placed on the operative table in the supine position. She received general endotracheal tube anesthesia. Her neck was prepped and draped usual sterile fashion. Patient's placed in the beach chair position. The neck incision was marked. And then using a 15 blade incision was made. Using left cautery subcutaneous tissues and platysma were divided. The platysma flaps then elevated after the platysma was grasped Allis clamps. After the platysma flaps were created Gelpi placed a wound. The strap muscle divided midline. And then using a pair Tom retractors the left thyroid gland was exposed. There was a large 3 cm nodule located in the left lower left thyroid. Using meticulous dissection the thyroid gland was then rotated medially. The superior thyroid vessels were then dissected and then with a right angle clamp and a suture was passed around the superior thyroid vessels. 2-0 silk suture was uses. 2 sutures used to ligate the superior vessels then using the Harmonic scissors the hospital divided. Next the inferior thyroidal vessels were suture-ligated with 3-0 silk ties and then divided with the Harmonic scissors. The gland was rotated medially further and then several small vessels were divided between the Harmonic scissors and using 3-0 silk ties. Care was taken to identify and preserve the recurrent laryngeal nerve. The thyroid was then rotated medially trachea. Then using Harmonic scissors the thyroid gland was then dissected free of GERD. He has was then divided with Harmonic scissors. The specimens of pathology. The wound was hemostased. There was no bleeding seen. The strap muscle reapproximated using 3-0 Vicryl suture. The platysma was closed with 3-0 Vicryl suture. And then the skin was closed interrupted 3-0 Monocryl suture. Dermabond dressings applied. Patient top she will was sent to recovery room in stable condition.
[2022-10-25] MEDS: HYDROmorphone 0.5 MG/0.5 ML SYRINGE IVP PRN ×3 (13:28→14:13)
[2022-10-25] MEDS ORDERED: ALBUTEROL NEBULIZED 2.5 MG/3 ML INHALATION PRN (21:33)
--- NOTE | 2022-10-25 22:42 | P.CONS ---
History of Present Illness - Reason for Consult Consult date: 10/25/22 post op medical management - Chief Complaint thyroid nodule - History of Present Illness 52 year old female with obesity patient came in today for scheduled thyroid nodule removal, patient is not sure of the results of her OP workup , patient tolerated procedure well , no observed immediate post op complications, she is having incrase nausea and is not tolerating PO intake . she reports that pain is well tolerated, no trouble breathing or chest pain, no difficulty swallowing or breathing, no changes in her voice, no cramping of her hands. no perioral numbness Review of Systems Pertinent positives as noted in HPI. All other systems were reviewed and are negative Past Medical History Past Medical History: Asthma, Thyroid Disorder Additional Past Medical History / Comment(s): Seasonal allergies. History of Any Multi-Drug Resistant Organisms: None Reported Past Surgical History: Orthopedic Surgery Additional Past Surgical History / Comment(s): Right knee surgery X2, surgery for ectopic . Past Anesthesia/Blood Transfusion Reactions: No Reported Reaction Past Psychological History: No Psychological Hx Reported Smoking Status: Former smoker Past Alcohol Use History: None Reported Additional Past Alcohol Use History / Comment(s): Quit smoking 7 yrs ago, smoked off and on for 15 yrs. Past Drug Use History: None Reported - Past Family History Mother Family Medical History: No Reported History Additional Family Medical History / Comment(s): no history of thyroid disorder Medications and Allergies Home Medications Medication Instructions Recorded Confirmed Type Albuterol Inhaler [Ventolin Hfa 1 - 2 puff INHALATION Q6H PRN 10/20/22 10/25/22 History Inhaler] Fluticasone (Unknown Dose) 1 spray NASAL BID 10/20/22 10/25/22 History Meloxicam [Mobic] 15 mg PO DAILY 10/20/22 10/25/22 History Multivitamins, Thera [Multivitamin 1 tab PO DAILY 10/20/22 10/25/22 History (formulary)] Diclofenac Submicronized 50 mg PO DAILY 10/25/22 10/25/22 History [Diclofenac] Allergies Allergy/AdvReac Type Severity Reaction Status Date / Time cortisone Allergy Swelling Verified 10/25/22 10:32 Penicillins Allergy Unknown Verified 10/25/22 10:32 Childhood shellfish derived [Shrimp] Allergy Unknown Verified 10/25/22 10:32 Physical Exam Vitals: Vital Signs Temp Pulse Resp BP BP Pulse Ox 10/25/22 20:00 16 10/25/22 19:58 97.4 F L 77 16 132/76 91 L 10/25/22 16:53 82 18 158/68 92 L 10/25/22 16:00 59 L 18 142/75 96 10/25/22 15:33 57 L 16 137/79 95 10/25/22 15:21 62 18 141/79 96 10/25/22 15:14 58 L 16 134/78 96 10/25/22 14:51 54 L 16 136/75 96 10/25/22 14:33 55 L 16 140/84 96 10/25/22 14:23 77 16 145/85 95 10/25/22 14:05 54 L 16 145/79 100 10/25/22 13:48 60 16 130/78 100 10/25/22 13:33 57 L 16 129/79 100 10/25/22 13:20 86 16 130/76 100 10/25/22 13:11 97 F L 82 16 134/83 100 10/25/22 10:43 97.6 F 67 14 133/79 96 Intake and Output 10/25/22 10/25/22 10/25/22 06:59 14:59 22:59 Intake Total 1800 300 Output Total 10 Balance 1790 300 Intake: IV 1800 100 Oral 200 Output: Estimated Blood Loss 10 Other: Weight 85 kg Constitutional: No acute distress, conversant, pleasant Eyes: Anicteric sclerae, moist conjunctiva, Pupils equal round reactive to light ENMT: NC/AT Oropharynx clear, no erythema, or exudates Neck: Supple, no masses, or JVD, surgical wound looks clean dry and intact No carotid bruits No thyromegaly Lungs: Clear to auscultation Clear to percussion Normal respiratory effort, no accessory muscle use Cardiovascular: Heart regular in rate and rhythm, No murmurs, gallops, or rubs No peripheral edema Abdominal: Soft Nontender, no guarding, rebound or rigidity Abdomen moving with respiration Normoactive bowel sounds No hepatomegaly, No splenomegaly No palpable mass No abdominal wall hernia noted Skin: Normal temperature, tone, texture, turgor No induration No subcutaneous nodules No rash, lesions No ulcers Extremities: No digital cyanosis No clubbing Pedal pulses intact and symmetrical Radial pulses intact and symmetrical No calf tenderness Psychiatric: Alert and oriented to person, place and time Appropriate affect fair judgement Neuro Muscles Strength 5/5 in all 4 extremities Sensation to light touch grossly present throughout Cranial nerves II-XII grossly intact Lymphatics: no palpable cervical or supraclavicular lymph nodes Assessment and Plan Assessment: thyroid nodule post surgical removal POD zero pain control follow up primary team care symptomatic control of nausea and vomiting IVF hydration with normal saline , patient not tolerating PO intake OP follow up on thyroid function and Ca level intermittent asthma, inhalers PRN obesity counseled regarding weight loss and life style modification full code DVT PPX lovenox daily sc
[2022-10-25] MEDS: SODIUM CHLORIDE 0.9% 1,000 ML IV SCH (23:32)
[2022-10-26] MEDS: LACTATED RINGERS 1,000 ML IV SCH (05:39)
[2022-10-26] MEDS ORDERED: ENOXAPARIN 40 MG/0.4 ML SYRINGE SQ SCH (09:00)
[2022-10-26 09:03] LABS: Basophils # (A) 0.04 X 10*3/uL (0.00-0.10); Basophils % (A) 0.3 %; Eosinophils # (A) 0.04 X 10*3/uL (0.04-0.35); Eosinophils % (A) 0.3 %; HCT 40.1 % (37.2-46.3); HGB 13.5 g/dL (12.0-15.0); Immature Grans, Automated 0.3 %; Lymphocytes # (A) 1.76 X 10*3/uL (0.90-5.00); Lymphocytes % (A) 13.9 %; MCH 30.1 pg (27.0-32.0); MCHC 33.7 g/dL (32.0-37.0); MCV 89.5 fL (80.0-97.0); Monocytes # (A) 0.97 X 10*3/uL (0.20-1.00); Monocytes % (A) 7.7 %; NRBC Per 100 WBC 0 /100 WBCS (0.0-0.0); Neutrophils # (A) 9.78 X 10*3/uL (1.80-7.70); Neutrophils % (A) 77.5 %; Platelet Count 284 X 10*3/uL (140-440); RBC 4.48 X 10*6/uL (4.10-5.20); RDW 12.6 % (11.5-14.5); WBC 12.63 X 10*3/uL (4.50-10.00)
[2022-10-26 09:22] LABS: African American GFR (CKD) 123.2 (60.0-200.0); Anion Gap 11.6 mmol/L (10.00-18.00); BUN/Creat Ratio 15.5 Ratio (12.00-20.00); Blood Urea Nitrogen 9.3 mg/dL (9.0-27.0); Calcium 8.8 mg/dL (8.7-10.3); Carbon Dioxide 24.4 mmol/L (20.0-27.5); Non-African American GFR(CKD) 106.3 (60.0-200.0); Potassium 3.8 mmol/L (3.5-5.5)
[2022-10-26] MEDS: SODIUM CHLORIDE 0.9% 1,000 ML IV SCH (12:36)
--- NOTE | 2022-10-26 12:39 | P.DS ---
Providers Expected date of discharge: 10/26/22 Attending physician: Dale Razo Consults: 10/25/22 13:12 Consult Physician Routine Consulting Provider: Norma Avilez Consult Reason/Comments: Medical management Do you want consulting provider notified?: Yes Primary care physician: Catrachito Purvis MD Hospital Course: Discharge diagnosis 1. Left thyroid nodule status post left thyroidectomy Hospital course This is a 52-year-old female with a left thyroid nodule and tender mass in the left neck. She is status post left thyroidectomy. Her pain is controlled. She is tolerating diet. Denies any hoarseness in the voice. Afebrile. Up and ambulating. She is stable for discharge. Please refer to chart for any further details. Physician Switch Foreman note has been reviewed by physician. Signing provider agrees with the documented findings, assessment, and plan of care. Patient Condition at Discharge: Stable Plan - Discharge Summary Discharge Rx Participant: Yes New Discharge Prescriptions: New HYDROcodone/APAP 5-325MG [[place] 5-325] 1 tab PO Q6HR PRN 3 Days #12 tab PRN Reason: Pain Continue Multivitamins, Thera [Multivitamin (formulary)] 1 tab PO DAILY Albuterol Inhaler [Ventolin Hfa Inhaler] 1 - 2 puff INHALATION Q6H PRN PRN Reason: Shortness Of Breath Fluticasone (Unknown Dose) 1 spray NASAL BID No Action Meloxicam [Mobic] 15 mg PO DAILY Diclofenac Submicronized [Diclofenac] 50 mg PO DAILY Discharge Medication List Albuterol Inhaler [Ventolin Hfa Inhaler] 1 - 2 puff INHALATION Q6H PRN 10/20/22 [History] Fluticasone (Unknown Dose) 1 spray NASAL BID 10/20/22 [History] Meloxicam [Mobic] 15 mg PO DAILY 10/20/22 [History] Multivitamins, Thera [Multivitamin (formulary)] 1 tab PO DAILY 10/20/22 [History] Diclofenac Submicronized [Diclofenac] 50 mg PO DAILY 10/25/22 [History] HYDROcodone/APAP 5-325MG [[place] 5-325] 1 tab PO Q6HR PRN 3 Days #12 tab 10/26/22 [Rx] Follow up Appointment(s)/Referral(s): Dale Razo MD [STAFF PHYSICIAN] - 12/20/22 2:45 pm Activity/Diet/Wound Care/Special Instructions: No driving while taking [place] No lifting over 10 pounds Shower daily. No soaking or tub baths for 2 weeks Very light activity until you are reevaluated at your follow up appointment with your surgeon Hold on taking Mobic and Diclofenac until seen by surgeon due to increase bleeding risk with these medications Discharge Disposition: HOME SELF-CARE
--- NOTE | 2022-10-26 13:54 | P.PN ---
Subjective Progress Note Date: 10/26/22 Hospital course: Patient is a 4-year-old female with a past medical history of mild intermittent asthma controlled with occasional use of Ventolin inhaler and thyroid nodule. Patient is currently admitted under Gen. surgery team status post thyroid nodule removal. Surgical procedure was completed on 10/25/[address] Razo. We have been consulted for medical management throughout patient's hospitalization. Patient seen and fully evaluated at the bedside this morning. She appeared to be doing well. CBC and BMP showing no significant abnormalities with the exception of mild leukocytosis with WBC count of 12.63 believed to be reactive. Patient's vital signs unremarkable with blood pressure 126/76, heart rate 95, respiratory rate 16, temp 98.9F and SpO2 of 94% on room air. Patient reports having a rough night with nausea and vomiting. Patient reports last time vomit ing was around midnight and denies any further episodes of vomiting. Patient tolerating oral intake and denies having any difficulties with swallowing, shortness of breath, cough, or congestion at this time. Medically patient is stable for discharge once cleared by primary admitting Gen. surgery team. Physical exam: Vital signs reviewed and stable. General: Nontoxic, no distress and appears stated age. Derm: Skin warm and dry, normal coloration for ethnicity. Head: Atraumatic, normocephalic and symmetric. Postsurgical dressing to the anterior neck. Eyes: EOMs intact, no lid lag, and anicteric sclera Mouth: no lip lesions, mucus membranes moist Cardiovascular: regular rate and rhythm with normal S1S2, no murmur, positive posterior tibial pulses bilaterally, and cap refill < 2 seconds. Lungs: Respirations even, regular, and unlabored on room air. Lungs CTA bilaterally, no rhonchi, no rales, no wheezing, and no accessory muscle usage. Abdominal: soft, nontender to palpation, no guarding, no appreciable organomegaly Ext: ROM intact. No gross muscle atrophy, no edema, no contractures Neuro: Speech clear, face symmetrical and CN II-XII grossly intact with no noted focal neuro deficits Psych: Alert and oriented to person, place, time, and situation. Appropriate and pleasant affect. Assessment and Plan of Care: Status post thyroid nodule removal -Management per primary admitting general surgery team. Postoperative nausea and vomiting -Resolved. Intermittent asthma -Patient be continued use of home inhaler as needed for shortness of breath and/or wheezing. Obesity with BMI of 33.2 kg/m. -Recommend structured outpatient weight management program. Thank you for allowing us to participate in the care of this pleasant patient. Do not hesitate to contact us with questions. Someone can be reached from the [facility] hospitalist group all hours of the day at [phone] or via perfect serve. Objective - Vital Signs Vital signs: Vital Signs Temp 98.9 F 10/26/22 05:08 Pulse 95 10/26/22 05:08 Resp 16 10/26/22 05:08 BP 126/76 10/26/22 05:08 Pulse Ox 94 L 10/26/22 05:08 FiO2 Intake & Output 10/25/22 10/26/22 10/26/22 18:59 06:59 18:59 Intake Total 1900 400 Output Total 10 Balance 1890 400 Weight 85 kg Intake: IV 1900 Oral 400 Output: Estimated Blood Loss 10 Other: # Voids 3 - Labs CBC & Chem 7: 10/26/22 06:04 10/26/22 06:04 Labs: Abnormal Lab Results - Last 24 Hours (Table) 10/26/22 Range/Units 06:04 WBC 12.63 H (4.50-10.00) X 10*3/uL Neutrophils # 9.78 H (1.80-7.70) X 10*3/uL Assessment and Plan Assessment: Attending note Dale Ann NP rendered care for this patient independently, reviewed the findings and plan as documented in the note above. I did not physically speak with our examined the patient on this date.
[2022-10-26 14:21] VITALS: BP 142/82; PULSE 79; RESP 18; TEMP 98.8
== END 2022-10-26 15:47 | disposition home or self-care (01) ==
LOC: OR 10:01 → 5NMEDONC 13:15 → OR 10-26 15:47
PROVIDERS: ATTEND Surgery
DX: E04.1 Nontoxic single thyroid nodule (principal); J45.20 Mild intermittent asthma, uncomplicated; Z98.890 Other specified postprocedural states; Z87.891 Personal history of nicotine dependence; Z87.59 Personal history of other complications of pregnancy, childbirth and the puerperium; Z79.1 Long term (current) use of non-steroidal anti-inflammatories (NSAID); Z88.0 Allergy status to penicillin; Z88.8 Allergy status to other drugs, medicaments and biological substances; Z91.013 Allergy to seafood; Z79.51 Long term (current) use of inhaled steroids; E66.9 Obesity, unspecified; Z79.01 Long term (current) use of anticoagulants; Z86.718 Personal history of other venous thrombosis and embolism; Z68.33 Body mass index [BMI] 33.0-33.9, adult
CPT/HCPCS: 60210; 81025; 80048; 82310; 85025; J0690; J2405; J1650; J1170; J1644

== ENCOUNTER → 2022-11-23 | Outpatient (CLI) | payer BC, OTHER ==
[2022-11-23 18:32] LABS: Basophils # (A) 0.05 X 10*3/uL (0.00-0.10); Basophils % (A) 0.6 %; Eosinophils % (A) 4.9 %; HCT 43.4 % (37.2-46.3); HGB 14.2 g/dL (12.0-15.0); Immature Grans, Automated 0.1 %; Lymphocytes # (A) 2.02 X 10*3/uL (0.90-5.00); Lymphocytes % (A) 24.6 %; MCH 30.1 pg (27.0-32.0); MCHC 32.7 g/dL (32.0-37.0); MCV 91.9 fL (80.0-97.0); Mean Platelet Volume 10.5 fL (9.5-12.2); Monocytes # (A) 0.73 X 10*3/uL (0.20-1.00); Monocytes % (A) 8.9 %; NRBC Per 100 WBC 0 /100 WBCS (0.0-0.0); Neutrophils % (A) 60.9 %; Platelet Count 294 X 10*3/uL (140-440); RBC 4.72 X 10*6/uL (4.10-5.20); RDW 12.9 % (11.5-14.5); WBC 8.21 X 10*3/uL (4.50-10.00)
[2022-11-23 19:12] LABS: Anion Gap 11.7 mmol/L (10.00-18.00); Carbon Dioxide 25.4 mmol/L (20.0-27.5); Potassium 4.4 mmol/L (3.5-5.5)
== END | disposition home or self-care (01) ==
LOC: LABPAT 11:51
PROVIDERS: ATTEND Orthopaedic Surgery
DX: Z01.812 Encounter for preprocedural laboratory examination (principal); M23.91 Unspecified internal derangement of right knee
CPT/HCPCS: 80051; 85025; 93005

== ENCOUNTER → 2023-04-13 | Outpatient (CLI) | payer OTHER ==
--- NOTE | 2023-04-13 11:35 | MM ---
Reason for Exam: Follow-up at short interval from prior study. Last screening mammogram was performed 6 month(s) ago. Patient History: Menarche at age 15. First Full-Term at age 23. Hormonal Contraceptives for 14 years from age 18 until age 32. Risk Values: Ignacia 5 year model risk: 0.9%. NCI Lifetime model risk: 7.9%. Prior Study Comparison: 10/05/2021 Bilateral Screening Mammogram, [facility]. 10/23/2021 Bilateral Diagnostic Mammogram, [facility]. 09/14/2022 Bilateral MG 3D diag mammo w/cad [facility], [facility]. Tissue Density: Right: The breast tissue is heterogeneously dense. This may lower the sensitivity of mammography. Findings: Analyzed By CAD. Unchanged regional punctate calcifications medially on the right. There is chronic circumscribed low density nodularity both medially and laterally in the right breast, unchanged from 10/05/2021. No increasing nodularity is identified. No other discrete abnormality seen. Overall Assessment: Benign, BI-RAD 2 Management: Screening Mammogram of both breasts in 6 months. . Results were given to the patient verbally at the time of exam. Patient should continue monthly self-breast exams. A clinical breast exam by your physician is recommended on an annual basis. This exam should not preclude additional follow-up of suspicious palpable abnormalities. Note on Ignacia scores and lifetime risk: 1. A Ignacia score greater than 3% is considered moderate risk. If this is the case, consider specialist referral to assess eligibility for a risk reducing agent. 2. If overall lifetime risk for the development of breast cancer is 20% or higher, the patient may qualify for future screening with alternating mammogram and breast MRI. Electronically signed and approved by: Elizabeth Lopez M.D. Radiologist
== END | disposition home or self-care (01) ==
LOC: RADMAMWWP 10:53
PROVIDERS: ATTEND Internal Medicine
DX: R92.8 Other abnormal and inconclusive findings on diagnostic imaging of breast (principal)
CPT/HCPCS: 77065; G0279; 77061

== ENCOUNTER → 2023-08-01 | Outpatient (CLI) | payer OTHER ==
--- NOTE | 2023-08-01 12:53 | US ---
EXAMINATION TYPE: US thyroid st tissue head/neck DATE OF EXAM: 08/01/2023 COMPARISON: US thyroid 09/18/2021, 06/03/2020, 11/29/2019 CLINICAL INDICATION: Female, 53 years old with history of E04.1NONTOXIC SINGLE THYROID NODULE; F/U pr ior, Left thyroid surgically absent GLAND SIZE: Right Lobe: 4.6 x 1.7 x 2.2 cm Overall Parenchyma: heterogenous Left Lobe: Surgically absent cm NODULES RIGHT: # of nodules measured on right: 3 1. 1.1 X 1.1 x 1.1 cm, lower lateral, mixed cystic and solid, hypoechoic nodule, which is wider john paul n tall, with smooth margins, without echogenic foci. TR3. Prior size: 1.4 x 0.8 x 0.8 cm 2. 1.0 X 1.1 x 1.0 cm, lower mid, mixed cystic and solid, hypoechoic nodule, which is wider than ta ll, with smooth margins, without echogenic foci.TR3. Prior size: 1.0 x 1.1 x 1.0 cm 3. 1.3 X 1.0 x 1.1 cm, upper, mixed cystic and solid, hypoechoic nodule, which is wider than tall, with smooth margins, without echogenic foci.TR3. Prior size: Not visualized on prior ISTHMUS: # of nodules measured in the isthmus: 1 1. 0.9 X 0.7 x 1.1 cm mixed cystic and solid, hypoechoic nodule, which is wider than tall, with smo oth margins, without echogenic foci.TR3. Prior size: Not visualized on prior Bilateral neck scanned, no evidence of lymphadenopathy. Nodules as described above. IMPRESSION: 1. Stable right thyroid lobe nodules with new right thyroid and isthmus TR 3 nodules. Follow-up ultr asound in one year is recommended. 2. Postsurgical changes from left thyroidectomy.
== END | disposition home or self-care (01) ==
LOC: RADUSWWP 12:08
PROVIDERS: ATTEND Surgery
DX: E04.1 Nontoxic single thyroid nodule (principal); Z90.89 Acquired absence of other organs
CPT/HCPCS: 76536